=== PATIENT | male | born 1970 | race Caucasian/White ===

== ENCOUNTER 2017-10-04 08:48 | Emergency (ER) | payer MEDICAID ==
--- NOTE | 2017-10-04 09:22 | EDPHY ---
H & P Smoking Status: Former smoker Time Seen by Provider: 10/04/17 08:52 HPI/ROS: CHIEF COMPLAINT: Right-sided rib pain HISTORY OF PRESENT ILLNESS: 47-year-old male presents to the emergency department by private vehicle with pain in the right side of his rib area over the last 24 hr. Pain began gradually in his right lateral chest wall area. 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 He thinks that it is slightly worse with movement. He denies feeling short of breath. Denies any other chest pain. No radiation of symptoms. No rash. No abdominal pain. No nausea or vomiting. He states that he was unable to sleep last night and was up all night because of the pain. He tried taking ibuprofen at 3:30 a.m. This morning without relief. No recent travel. No calf pain. No pleuritic chest pain. REVIEW OF SYSTEMS: Constitutional: No fever, no chills. Eyes: No double or blurry vision. ENT: No sore throat. Respiratory: Right-sided chest pain as above. No cough, no shortness of breath. Cardiac: No chest pain. Gastrointestinal: No abdominal pain, vomiting or diarrhea. Genitourinary: No dysuria. Musculoskeletal: No neck or back pain. Skin: No rashes. Neurological: No headache. (Tammie Mcintosh) Past Medical/Surgical History: Orthopedic surgery (Tammie Mcintosh) Social History: Sales Support Consultant (Tammie Mcintosh) Physical Exam: General Appearance: Alert, no distress. Vital signs are stable. 98% on room air. Eyes: Pupils equal and round. Extraocular motions are all intact. ENT: Mouth: Mucous membranes moist. Respiratory: No wheezing, rhonchi, or rales, lungs are clear to auscultation. Unable to recreate pain with palpation to the right lateral chest wall where his source of pain is. Cardiovascular: Regular rate and rhythm. Gastrointestinal: Abdomen is soft and nontender, no masses, no rebound or guarding, bowel sounds normal. No CVA tenderness bilaterally. Neurological: Alert and oriented x 3, cranial nerves II through XII grossly intact Skin: Warm and dry, no rashes. Musculoskeletal: Nontender to palpate along the cervical, thoracic or lumbar spine. Neck is supple. Extremities: Full range of motion and no peripheral edema. Psychiatric: Patient is oriented X 3, there is no agitation. (Tammie Mcintosh) Constitutional: Initial Vital Signs Temperature (C) 36.8 C 10/04/17 08:48 Heart Rate 66 10/04/17 08:48 Respiratory Rate 16 10/04/17 08:48 Blood Pressure 129/88 H 10/04/17 08:48 O2 Sat (%) 98 10/04/17 08:48 O2 Delivery Mode Room Air Allergies/Adverse Reactions: No Known Allergies Allergy (Verified 10/04/17 08:50) Home Medications: Medication Instructions Recorded NK [No Known Home Meds] 10/04/17 Medical Decision Making - Diagnostics Imaging: Discussed imaging studies w/ callisthenics instructor Radiologist ED Course/Re-evaluation: 47-year-old male presents to the emergency department with right-sided chest wall pain. Laboratory studies [place] [id number]. His chemistries were all unremarkable. Patient was able to provide a urine specimen which we did not reveal any blood. I spoke with Dr. Mukesh Abbott, secondary supervising physician, who also evaluated the patient and recommended obtaining CT angiogram of the chest and CT scan of the abdomen and pelvis. CT angiogram reveals no evidence of pulmonary embolism. A CT scan of the abdomen pelvis was normal with the exception of evidence of duodenitis with possibility of duodenal ulcer. No evidence of perforation or free air. No hydronephrosis or kidney stones. The findings were discussed with the patient. He was given a GI cocktail and was feeling much better. He was also given IV Protonix. Patient was given gastroenterology referral. He was instructed to return if he developed fever, increasing pain, or any other concerns. (Tammie Mcintosh) I did not see this patient while he was in the emergency department. However his care was discussed with the PA while the patient was in the department. I agree with treatment plan and management (Mukesh Abbott) Differential Diagnosis: Including but not limited to peptic ulcer disease, GERD, pulmonary embolism, kidney stone, intra-abdominal infection, cholecystitis, cholelithiasis, pneumonia, pleurisy (Tammie Mcintosh) - Data Points Laboratory Results: Laboratory Results 10/04/17 09:00 10/04/17 09:00 Medications Given: Discontinued Medications Al Hydroxide/Mg Hydroxide (Maalox Susp) 30 ml PO ONCE ONE Stop: 10/04/17 13:39 Last Admin: 10/04/17 13:43 Dose: 30 ml Hyoscyamine Sulfate (Levsin, Hyomax-Sl) 0.25 mg PO ONCE ONE Stop: 10/04/17 13:39 Last Admin: 10/04/17 13:43 Dose: 0.25 mg Sodium Chloride (Ns) 1,000 mls @ 0 mls/hr IV ONCE ONE PRN Reason: Wide Open Stop: 10/04/17 09:38 Last Admin: 10/04/17 09:41 Dose: 1,000 mls Lidocaine (Lidocaine 2% Viscous) 15 ml PO ONCE ONE Stop: 10/04/17 13:39 Last Admin: 10/04/17 13:43 Dose: 15 ml Pantoprazole Sodium (Protonix) 40 mg IVP EDNOW ONE Stop: 10/04/17 14:14 Last Admin: 10/04/17 14:19 Dose: 40 mg Departure - Departure Disposition: Home, Routine, Self-Care Clinical Impression: Peptic ulcer disease, Abdominal pain Condition: Good Instructions: Peptic Ulcer (ED), Duodenitis (ED) Additional Instructions: Your given IV Protonix in the emergency department. Take [id number] Prilosec and follow up with a robotics application engineer. You should avoid spicy foods , caffeine, carbonation, alcohol or any food that causes pain in your stomach. Return to the emergency department if you developed worsening pain, fever, vomiting, or if you feel worse in any way. Referrals: Reynaldo Peguero MD, FACG [Medical Doctor] - 2-3 days without fail ( Supervisor [employer] on-call)
[2017-10-04 09:24] LABS: PLATELET COUNT 355 10^3/uL (150-400)
[2017-10-04] MEDS ORDERED: NS 1,000 ML IV ONE (09:37)
[2017-10-04] MEDS ORDERED: IOPAMIDOL (ISOVUE 370) 100 ML BTL IV ONE (12:37)
[2017-10-04] MEDS ORDERED: MAG HYDROX/AL HYDROX/SIMETH 30 ML UDCUP PO ONE (13:38)
[2017-10-04] MEDS ORDERED: HYOSCYAMINE SULFATE 0.125 MG TAB PO ONE (13:38)
[2017-10-04] MEDS ORDERED: LIDOCAINE 2% VISCOUS 15 ML UDCUP PO ONE (13:38)
[2017-10-04] MEDS ORDERED: PANTOPRAZOLE SODIUM 40 MG VIAL IVP ONE (14:13)
[2017-10-04 14:59] VITALS: BP 134/67
== END 2017-10-04 14:58 | disposition home or self-care (01) ==
DX: K27.9 Peptic ulcer, site unspecified, unspecified as acute or chronic, without hemorrhage or perforation (principal); Z87.891 Personal history of nicotine dependence
CPT/HCPCS: 96374; Q9967